=== PATIENT | male | born 1960 | race African-American/Black ===

== ENCOUNTER 2025-02-21 10:29 | Emergency (ER) | payer OTHER, SELFPAY ==
[2025-02-21] VITALS (18 sets, daily range): BP systolic 150–170; BP diastolic 99–118; PULSE 84–100; RESP 10–19; TEMP 36.6; O2SAT 95–98
--- NOTE | ~2025-02-21 | XR_ITS ---
EXAMINATION: XR chest 2V DATE: 02/21/2025 11:14 INDICATION: Belching TECHNIQUE: Frontal and lateral views of the chest were obtained. COMPARISON: None. FINDINGS: Irregular shaped opacification in the right hilar region of uncertain chronicity. The remaining lung mckeon are clear. Heart size normal. No pneumothorax or subphrenic free air seen. IMPRESSION: 1. Right hilar changes may represent benign fibrosing process, although acute infiltrate may be present and malignancy is not excluded. 2. Findings should be followed radiographically until clear. If there is concern for malignancy, correlation with chest CT more immediately is recommended. Reviewed, dictated and finalized at location A. LOGY SOCIAL WORKER IMPRESSION: 1. Right hilar changes may represent benign fibrosing process, although acute i nfiltrate may be present and malignancy is not excluded. 2. Findings should be followed radiographically until clear. If there is concer n for malignancy, correlation with chest CT more immediately is recommended.
--- NOTE | ~2025-02-21 | CT_ITS ---
EXAMINATION:CT diagnostic chest w con DATE: 02/21/2025 14:33 INDICATION: Subacute chest pain. Follow-up of abnormal finding on chest x-ray consisting of irregular shaped opacity of right perihilar region. Smoking history not available. There is no mention of prior malignancy or treatment. TECHNIQUE: Computed tomography (CT) of the chest was performed with 100 cc intravenous contrast. Automated exposure control and iterative reconstruction technique were employed. The dose-length product (DLP) was 263.18 mGy-cm. COMPARISON: Chest x-ray dated 02/21/2025. Earlier imaging studies of the chest are not available for comparison. FINDINGS: Significant lyons acinar emphysematous changes of lungs predominantly involving upper lobe of both lungs. Multiple subpleural bullae are noted in the right upper lobe. Significant abnormality of the right perihilar region is noted. There is a sharp, anterior posterior linear demarcation between the hilum and perihilar region. This finding raises question of possible postsurgical change and possible postradiation changes at the lateral margin of radiation Field as the demarcation. Cylindrical bronchiectasis in the right middle lobe and lower lobe. No hilar adenopathy. However and mediastinal lymphadenopathy in the subcarinal location measuring 1.9 cm in short axis. No pleural effusion or pericardial effusion. No focal bone changes of thoracic spine sternum and ribs. IMPRESSION: 1. Limited evaluation due to incomplete clinical history of possible prior history of malignancy and treatment. Evaluation limited due to lack of prior chest images for comparison. 2. Severe underlying panacinar emphysematous changes of both lungs. 3. Significant abnormality of right perihilar region consisting of sharp lateral demarcation between opacification and perihilar region appears to suggest radiation field from prior radiation treatment. Please correlate with clinical history. 4. Mediastinal lymphadenopathy predominantly in the subcarinal location. 5. No evidence of pulmonary embolus. Evidence of pulmonary arterial hypertension. Reviewed, dictated and finalized at location T. SCOPY TECHNICIAN IMPRESSION: 1. Limited evaluation due to incomplete clinical history of possible prior hist ory of malignancy and treatment. Evaluation limited due to lack of prior chest images for comparison. 2. Severe underlying panacinar emphysematous changes of both lungs. 3. Significant abnormality of right perihilar region consisting of sharp latera l demarcation between opacification and perihilar region appears to suggest rad iation field from prior radiation treatment. Please correlate with clinical his tory. 4. Mediastinal lymphadenopathy predominantly in the subcarinal location. 5. No evidence of pulmonary embolus. Evidence of pulmonary arterial hypertensio n.
--- NOTE | 2025-02-21 10:33 | ECG_ITS ---
Test Date: 2025-02-21 10:36:27 Measurements Intervals Chauncey Rate: 85 P: 52 WV: 202 QRS: 253 QRSD: 157 T: 35 QT: 407 QTc: 485 Interpretive Statements SINUS RHYTHM RIGHT AXIS DEVIATION BORDERLINE AV CONDUCTION DELAY RIGHT BUNDLE BRANCH BLOCK ABNORMAL ECG No previous ECG available for comparison Electronically Signed On 02-21-2025 10:49:32 ROD BUSTER by Thomas Alexis D.O.
[2025-02-21 10:48] LABS: Hematocrit 42.5 % (42.0-52.0); Hemoglobin 14.0 g/dL (14.0-18.0); Immature Granulocyte Percent A 0.4 % (0-0.5); Lymphocytes Absolute Auto 1.18 K/mm3 (0.9-3.2); Mean Corpuscular HGB Conc 32.9 g/dl (32-36); Mean Corpuscular Hemoglobin 29.4 pg (26-34); Mean Corpuscular Volume 89.3 fl (80-100); Nucleated Red Blood Cells Absolute Auto 0.000 K/mm3 (0.0-0.012); Nucleated Red Blood Cells Perc 0.0 % (0.0-0.2); Platelet Count Result 188 k/mm3 (150-375); Red Blood Count 4.76 M/mm3 (4.6-6.20); White Blood Count 4.7 K/mm3 (4.5-10.0)
[2025-02-21 11:00] LABS: Alanine Aminotransferase 26 U/L (6-50); Albumin Level 4.3 g/dL (3.5-5.1); Alkaline Phosphatase 85 U/L (38-126); Anion Gap 8 mmol/L (4-12); Aspartate Amino Transferase 27 U/L (17-59); Bilirubin,Total 0.9 mg/dL (0.2-1.3); Blood Urea Nitrogen 14 mg/dL (9-20); Calcium 8.9 mg/dL (8.4-10.2); Carbon Dioxide 25 mmol/L (22-30); Chloride 103 mmol/L (98-107); Estimated CRCL calculation 102 ml/min; Estimated Glomerular Filt Rate > 60; Glucose 111 mg/dL (65-110); Lipase 36 U/L (23-300); Potassium 3.9 mmol/L (3.4-5.0); Sodium 136 mmol/L (137-145); Total Protein 8.4 g/dL (6.3-8.2)
[2025-02-21 11:02] LABS: Partial Thromboplastin Time 30.7 Seconds (22.3-36.8)
[2025-02-21 11:05] LABS: INR 1.0; Prothrombin Time 13.4 Seconds (11.1-14.7)
[2025-02-21 11:10] LABS: Troponin I < 0.012 ng/mL (0.000-0.034)
--- NOTE | 2025-02-21 13:24 | ED_ITS ---
HPI - Chest Pain General Chief Complaint: Chest Pain <NAOMI Steward Last Filed: 02/21/25 13:28> Stated Complaint: chest pain <NAOMI Steward Last Filed: 02/21/25 13:28> Time Seen by Provider: 02/21/25 13:24 <NAOMI Steward Last Filed: 02/21/25 13:28> Focused HPI: Patient is a 64 y/o male who presents to the ED with c/o CP. Patient reports he has been dealing with elevated BP for the past few weeks. Has been seen at [facility] multiple times for this. States he was rx' blood pressure medication yesterday, unsure of the name. Patient reports today, he had pressure in his midsternal chest. Mckenna as though he needed to belch. Mckenna SOB and diaphoretic with the pain. Took ASA at home and states pain improved slightly. Denies current pain. Denies feeling SOB currently. No previous hx of cardiac issues. GENERAL: Well-appearing, well-nourished, and in no acute distress. HEAD: Normocephalic, atraumatic. CHEST: Clear to auscultation. ?No respiratory distress. HEART: Regular rate and rhythm.? NEURO: ?Alert and oriented x3. Patient screened in triage and initial orders placed.? ?Additional care and disposition to be based upon?diagnostic testing and treatment. <NAOMI Steward Last Filed: 02/21/25 13:28> Source: patient <NAOMI Steward Last Filed: 02/21/25 13:28> Mode of arrival: ambulatory <NAOMI Steward Last Filed: 02/21/25 13:28> Limitations: no limitations <NAOMI Steward Last Filed: 02/21/25 13:28> Related Data Allergies/Adverse Reactions: Allergies Allergy/AdvReac Type Severity Reaction Status Date / Time No Known Allergies Allergy Verified 02/21/25 10:38 <NAOMI Steward Last Filed: 02/21/25 13:28> Review of Systems 2 Review of Systems: All systems reviewed & are unremarkable except as noted in HPI and below <Kevon Yancey MD - Last Filed: 02/21/25 15:33> Exam 2 Narrative: EXAMINATION OF ORGAN SYSTEMS/BODY AREAS: Constitutional: Vital signs per nursing GENERAL:[No acute distress, non-toxic appearing.] HEAD: Normal with no signs of head trauma. EYES: EOMI, conjunctiva normal ENT: Hearing grossly intact LUNGS: Nonlabored breathing. Clear to auscultation bilaterally HEART: [Regular rate and rhythm] symmetric pulses ABD: [Soft], [nontender to palpation] EXT: Normal range of motion SKIN: [No rashes or lesions.] NEURO: [Alert. No gross focal sensory or strength deficits.] PSYCH: Normal affect <Kevon Yancey MD - Last Filed: 02/21/25 15:33> Course Vital Signs Vital signs: Vital Signs Temperature 36.6 C 02/21/25 10:33 Pulse Rate 92 02/21/25 10:33 Respiratory Rate 18 02/21/25 10:33 Blood Pressure 154/99 H 02/21/25 10:33 Pulse Oximetry 96 02/21/25 10:33 Oxygen Delivery Room Air 02/21/25 10:33 Temperature 36.6 C 02/21/25 10:33 Pulse Rate 87 02/21/25 13:50 Respiratory Rate 16 02/21/25 13:50 Blood Pressure 157/103 H 02/21/25 13:50 Pulse Oximetry 98 02/21/25 13:50 Oxygen Delivery Room Air 02/21/25 13:50 <Kaitlin Ren PA-C - Last Filed: 02/21/25 13:28> Vital Signs Temperature 36.6 C 02/21/25 10:33 Pulse Rate 92 02/21/25 10:33 Respiratory Rate 18 02/21/25 10:33 Blood Pressure 154/99 H 02/21/25 10:33 Pulse Oximetry 96 02/21/25 10:33 Oxygen Delivery Room Air 02/21/25 10:33 Temperature 36.6 C 02/21/25 10:33 Pulse Rate 87 02/21/25 13:50 Respiratory Rate 16 02/21/25 13:50 Blood Pressure 157/103 H 02/21/25 13:50 Pulse Oximetry 98 02/21/25 13:50 Oxygen Delivery Room Air 02/21/25 13:50 <Kevon Yancey MD - Last Filed: 02/21/25 15:33> MDM MDM Narrative Medical decision making narrative: MSE by BRENDA in triage <Kaitlin Ren PA-C - Last Filed: 02/21/25 13:28> Differential Diagnosis Differential Diagnosis: 64-year-old male with previous history of lung cancer status post treatment presents to emergency department concerned about high blood pressure. He is without any shortness of breath visual changes or headache he has some slight chest discomfort we did get cardiac rule out of hypertensive emergency or atypical presentation of ACS. He does have a right bundle-branch block with no prior for comparison I did bring stuff the patient states that he has been told the past he has an abnormal EKG. His troponins are undetectable his labs were otherwise reviewed except limits. He did have an abnormality on the chest x-ray which did trigger a CT chest which was negative acute for any evidence of pulmonary embolism infiltrate or acute intrathoracic surgical emergency. I discussed and the importance of getting his blood pressure under control, shortness no evidence of end-organ damage and he is appropriate for outpatient follow-up established PCP return sooner for any new or concerning symptoms. Otherwise all questions answered discharged in stable condition <Kevon Yancey MD - Last Filed: 02/21/25 15:33> Lab Data Result diagrams: 02/21/25 10:41 02/21/25 10:41 <Kaitlin Ren PA-C - Last Filed: 02/21/25 13:28> Labs: Lab Results 02/21/25 02/21/25 Range/Units 10:41 13:46 WBC 4.7 (4.5-10.0) K/mm3 RBC 4.76 (4.6-6.20) M/mm3 Hgb 14.0 (14.0-18.0) g/dL Hct 42.5 (42.0-52.0) % MCV 89.3 (80-100) fl MCH 29.4 (26-34) pg MCHC 32.9 (32-36) g/dl RDW 12.4 (11.5-14.5) % Plt Count 188 (150-375) k/mm3 MPV 10.6 H (7.4-10.4) fl Immature Gran % (Auto) 0.4 (0-0.5) % Neut % (Auto) 62.3 (45.5-73.1) % Lymph % (Auto) 24.9 (18.3-44.2) % [place] % (Auto) 9.7 H (2.6-8.5) % Eos % (Auto) 1.9 (0-4.4) % Baso % (Auto) 0.8 (0.2-1.2) % Lymph # (Auto) 1.18 (0.9-3.2) K/mm3 [place] # (Auto) 0.5 (0.1-0.6) K/mm3 Eos # (Auto) 0.1 (0-0.3) K/mm3 Baso # (Auto) 0.0 (0.0-0.1) K/mm3 Abs Immat Gran (auto) 0.02 (0.00-0.031) K/mm3 Absolute Neuts (auto) 3.0 (1.3-6.7) K/mm3 Absolute Nucleated RBC 0.000 (0.0-0.012) K/mm3 Nucleated RBC % 0.0 (0.0-0.2) % PT 13.4 (11.1-14.7) Seconds INR 1.0 APTT 30.7 (22.3-36.8) Seconds Sodium 136 L (137-145) mmol/L Potassium 3.9 (3.4-5.0) mmol/L Chloride 103 (98-107) mmol/L Carbon Dioxide 25 (22-30) mmol/L Anion Gap 8 (4-12) mmol/L BUN 14 (9-20) mg/dL Creatinine 0.77 (0.7-1.3) mg/dL Estim Creat Clear Calc 102 ml/min Estimated GFR > 60 (59 - ) Glucose 111 H (65-110) mg/dL Calcium 8.9 (8.4-10.2) mg/dL Total Bilirubin 0.9 (0.2-1.3) mg/dL AST 27 (17-59) U/L ALT 26 (6-50) U/L Alkaline Phosphatase 85 (38-126) U/L Troponin I < 0.012 < 0.012 (0.000-0.034) ng/mL Total Protein 8.4 H (6.3-8.2) g/dL Albumin 4.3 (3.5-5.1) g/dL Lipase 36 (23-300) U/L <Kaitlin Ren PA-C - Last Filed: 02/21/25 13:28> Lab Results 02/21/25 02/21/25 Range/Units 10:41 13:46 WBC 4.7 (4.5-10.0) K/mm3 RBC 4.76 (4.6-6.20) M/mm3 Hgb 14.0 (14.0-18.0) g/dL Hct 42.5 (42.0-52.0) % MCV 89.3 (80-100) fl MCH 29.4 (26-34) pg MCHC 32.9 (32-36) g/dl RDW 12.4 (11.5-14.5) % Plt Count 188 (150-375) k/mm3 MPV 10.6 H (7.4-10.4) fl Immature Gran % (Auto) 0.4 (0-0.5) % Neut % (Auto) 62.3 (45.5-73.1) % Lymph % (Auto) 24.9 (18.3-44.2) % [place] % (Auto) 9.7 H (2.6-8.5) % Eos % (Auto) 1.9 (0-4.4) % Baso % (Auto) 0.8 (0.2-1.2) % Lymph # (Auto) 1.18 (0.9-3.2) K/mm3 [place] # (Auto) 0.5 (0.1-0.6) K/mm3 Eos # (Auto) 0.1 (0-0.3) K/mm3 Baso # (Auto) 0.0 (0.0-0.1) K/mm3 Abs Immat Gran (auto) 0.02 (0.00-0.031) K/mm3 Absolute Neuts (auto) 3.0 (1.3-6.7) K/mm3 Absolute Nucleated RBC 0.000 (0.0-0.012) K/mm3 Nucleated RBC % 0.0 (0.0-0.2) % PT 13.4 (11.1-14.7) Seconds INR 1.0 APTT 30.7 (22.3-36.8) Seconds Sodium 136 L (137-145) mmol/L Potassium 3.9 (3.4-5.0) mmol/L Chloride 103 (98-107) mmol/L Carbon Dioxide 25 (22-30) mmol/L Anion Gap 8 (4-12) mmol/L BUN 14 (9-20) mg/dL Creatinine 0.77 (0.7-1.3) mg/dL Estim Creat Clear Calc 102 ml/min Estimated GFR > 60 (59 - ) Glucose 111 H (65-110) mg/dL Calcium 8.9 (8.4-10.2) mg/dL Total Bilirubin 0.9 (0.2-1.3) mg/dL AST 27 (17-59) U/L ALT 26 (6-50) U/L Alkaline Phosphatase 85 (38-126) U/L Troponin I < 0.012 < 0.012 (0.000-0.034) ng/mL Total Protein 8.4 H (6.3-8.2) g/dL Albumin 4.3 (3.5-5.1) g/dL Lipase 36 (23-300) U/L <Kevon Yancey MD - Last Filed: 02/21/25 15:33> Imaging Data Attestation: I personally reviewed and interpreted this imaging study as follows: < Kevon Yancey MD - Last Filed: 02/21/25 15:33> My impression: Chest x-ray shows normal cardiac silhouette, no free air no infiltrate. < Kevon Yancey MD - Last Filed: 02/21/25 15:33> Radiologist's impression: ITS Impressions Chest X-Ray 02/21/25 11:19 IMPRESSION: 1. Right hilar changes may represent benign fibrosing process, although acute infiltrate may be present and malignancy is not excluded. 2. Findings should be followed radiographically until clear. If there is concern for malignancy, correlation with chest CT more immediately is recommended. Chest CT 02/21/25 14:35 IMPRESSION: 1. Limited evaluation due to incomplete clinical history of possible prior history of malignancy and treatment. Evaluation limited due to lack of prior chest images for comparison. 2. Severe underlying panacinar emphysematous changes of both lungs. 3. Significant abnormality of right perihilar region consisting of sharp lateral demarcation between opacification and perihilar region appears to suggest radiation field from prior radiation treatment. Please correlate with clinical history. 4. Mediastinal lymphadenopathy predominantly in the subcarinal location. 5. No evidence of pulmonary embolus. Evidence of pulmonary arterial hypertension. <Kaitlin Ren PA-C - Last Filed: 02/21/25 13:28> ITS Impressions Chest X-Ray 02/21/25 11:19 IMPRESSION: 1. Right hilar changes may represent benign fibrosing process, although acute infiltrate may be present and malignancy is not excluded. 2. Findings should be followed radiographically until clear. If there is concern for malignancy, correlation with chest CT more immediately is recommended. Chest CT 02/21/25 14:35 IMPRESSION: 1. Limited evaluation due to incomplete clinical history of possible prior history of malignancy and treatment. Evaluation limited due to lack of prior chest images for comparison. 2. Severe underlying panacinar emphysematous changes of both lungs. 3. Significant abnormality of right perihilar region consisting of sharp lateral demarcation between opacification and perihilar region appears to suggest radiation field from prior radiation treatment. Please correlate with clinical history. 4. Mediastinal lymphadenopathy predominantly in the subcarinal location. 5. No evidence of pulmonary embolus. Evidence of pulmonary arterial hypertension. <Kevon Yancey MD - Last Filed: 02/21/25 15:33> ECG Data EKG #1: Interpretation: Twelve lead EKG shows normal sinus rhythm at 85 beats per minute. There is a right bundle branch block. Borderline AV conduction delay. Right axis deviation. No prior for comparison overall impression abnormal EKG. < Kevon Yancey MD - Last Filed: 02/21/25 15:33> Discharge Plan Discharge Clinical Impression: Atypical chest pain, Hypertension <Kaitlin Ren PA-C - Last Filed: 02/21/25 13:28> Patient Disposition: Home <NAOMI Steward Last Filed: 02/21/25 13:28> Condition: Stable <NAOMI Steward Last Filed: 02/21/25 13:28> Instructions: Chronic Hypertension (ED), Chest Wall Pain (ED) <Kaitlin Ren PA-C - Last Filed: 02/21/25 13:28> Patient Language: Dominican <Kaitlin Ren PA-C - Last Filed: 02/21/25 13:28> Follow-up/Referrals: PHYSICIAN,DOCTOR OF NATUROPATHIC MEDICINE [Non-Staff, Internal Medicine] <Kaitlin Ren PA-C - Last Filed: 02/21/25 13:28> Time of Disposition: 15:29 <Kaitlin Ren PA-C - Last Filed: 02/21/25 13:28> 15:29 <Kevon Yancey MD - Last Filed: 02/21/25 15:33>
--- NOTE | 2025-02-21 13:38 | ED.CHESTPAIN ---
HPI - Chest Pain General Chief Complaint: Chest Pain Stated Complaint: chest pain Time Seen by Provider: 02/21/25 13:24 Source: patient Mode of arrival: ambulatory Limitations: no limitations Related Data Allergies Allergy/AdvReac Type Severity Reaction Status Date / Time No Known Allergies Allergy Verified 02/21/25 10:38 Course Vital Signs Vital signs: Vital Signs Temperature 36.6 C 02/21/25 10:33 Pulse Rate 92 02/21/25 10:33 Respiratory Rate 18 02/21/25 10:33 Blood Pressure 154/99 H 02/21/25 10:33 Pulse Oximetry 96 02/21/25 10:33 Oxygen Delivery Room Air 02/21/25 10:33 Temperature 36.6 C 02/21/25 10:33 Pulse Rate 92 02/21/25 10:33 Respiratory Rate 18 02/21/25 10:33 Blood Pressure 154/99 H 02/21/25 10:33 Pulse Oximetry 96 02/21/25 10:33 Oxygen Delivery Room Air 02/21/25 10:33 [facility] Lab Data 02/21/25 10:41 02/21/25 10:41 Labs: Lab Results 02/21/25 Range/Units 10:41 WBC 4.7 (4.5-10.0) K/mm3 RBC 4.76 (4.6-6.20) M/mm3 Hgb 14.0 (14.0-18.0) g/dL Hct 42.5 (42.0-52.0) % MCV 89.3 (80-100) fl MCH 29.4 (26-34) pg MCHC 32.9 (32-36) g/dl RDW 12.4 (11.5-14.5) % Plt Count 188 (150-375) k/mm3 MPV 10.6 H (7.4-10.4) fl Immature Gran % (Auto) 0.4 (0-0.5) % Neut % (Auto) 62.3 (45.5-73.1) % Lymph % (Auto) 24.9 (18.3-44.2) % [place] % (Auto) 9.7 H (2.6-8.5) % Eos % (Auto) 1.9 (0-4.4) % Baso % (Auto) 0.8 (0.2-1.2) % Lymph # (Auto) 1.18 (0.9-3.2) K/mm3 [place] # (Auto) 0.5 (0.1-0.6) K/mm3 Eos # (Auto) 0.1 (0-0.3) K/mm3 Baso # (Auto) 0.0 (0.0-0.1) K/mm3 Abs Immat Gran (auto) 0.02 (0.00-0.031) K/mm3 Absolute Neuts (auto) 3.0 (1.3-6.7) K/mm3 Absolute Nucleated RBC 0.000 (0.0-0.012) K/mm3 Nucleated RBC % 0.0 (0.0-0.2) % PT 13.4 (11.1-14.7) Seconds INR 1.0 APTT 30.7 (22.3-36.8) Seconds Sodium 136 L (137-145) mmol/L Potassium 3.9 (3.4-5.0) mmol/L Chloride 103 (98-107) mmol/L Carbon Dioxide 25 (22-30) mmol/L Anion Gap 8 (4-12) mmol/L BUN 14 (9-20) mg/dL Creatinine 0.77 (0.7-1.3) mg/dL Estim Creat Clear Calc 102 ml/min Estimated GFR > 60 (59 - ) Glucose 111 H (65-110) mg/dL Calcium 8.9 (8.4-10.2) mg/dL Total Bilirubin 0.9 (0.2-1.3) mg/dL AST 27 (17-59) U/L ALT 26 (6-50) U/L Alkaline Phosphatase 85 (38-126) U/L Troponin I < 0.012 (0.000-0.034) ng/mL Total Protein 8.4 H (6.3-8.2) g/dL Albumin 4.3 (3.5-5.1) g/dL Lipase 36 (23-300) U/L Imaging Data Radiologist's impression: ITS Impressions Chest X-Ray 02/21/25 11:19 IMPRESSION: 1. Right hilar changes may represent benign fibrosing process, although acute infiltrate may be present and malignancy is not excluded. 2. Findings should be followed radiographically until clear. If there is concern for malignancy, correlation with chest CT more immediately is recommended. Discharge Plan Discharge Patient Language: Monegasque Follow-up/Referrals: PHYSICIAN,C WPF DEVELOPER [Primary Care Provider, Internal Medicine]
[2025-02-21 14:30] LABS: Troponin I < 0.012 ng/mL (0.000-0.034)
== END 2025-02-21 15:50 | disposition home or self-care (01) ==
PROVIDERS: Emergency Provider Emergency Medicine
DX: R07.89 Other chest pain (principal); I10 Essential (primary) hypertension; Z85.118 Personal history of other malignant neoplasm of bronchus and lung; R91.8 Other nonspecific abnormal finding of lung field; I45.10 Unspecified right bundle-branch block; R94.31 Abnormal electrocardiogram [ECG] [EKG]
CPT/HCPCS: 36415; 71046; 71260; 80053; 83690; 84484; 85025; 85610; 85730; 93005; 99284; Q9967